=== PATIENT | female | born 2000 | race Caucasian/White ===

== ENCOUNTER 2020-07-29 15:16 | Outpatient (CLI) | payer OTHER, SELFPAY ==
--- NOTE | ~2020-07-29 | US_ITS ---
EXAMINATION: US OB <=14 wk fetus w TV EXAM DATE: 07/29/2020 16:01 INDICATION: For dating and viability. 1st trimester. TECHNIQUE: Pelvic obstetrical transabdominal and transvaginal sonogram was performed by a technologyinka muir. There are multiple grayscale and Doppler images available for interpretation. There are no cheryl ier studies of this gestation for comparison. FINDINGS: Uterus measures 6.6 x 5.7 x 5.1 cm. There is intrauterine gestation sac. pole with heart rate confirmed at 142 beats per minute. The 8 mm crown-rump length corresponds to estimated ge stational age by ultrasound of 6 weeks 5 days, estimated date of confinement 03/19. Yolk sac is iden tified. There is no sonographic evidence of subchorionic hemorrhage. Ovaries not specifically emy ntified. No adnexal mass. IMPRESSION: Early live intrauterine gestation, age by ultrasound 6 weeks 5 days. Reviewed, dictated and finalized at location A. IMPRESSION: Early live intrauterine gestation, age by ultrasound 6 weeks 5 day s.
== END 2020-07-29 15:17 | disposition home or self-care (01) ==
PROVIDERS: Visit Provider Obstetrics & Gynecology
DX: Z36.9 Encounter for antenatal screening, unspecified (principal); Z3A.01 Less than 8 weeks gestation of pregnancy
CPT/HCPCS: 76801; 76817

== ENCOUNTER 2020-08-23 15:58 | Outpatient (CLI) | payer OTHER, SELFPAY ==
[2020-08-23 16:35] LABS: Basophils Percent Auto 0.2 % (0.2-1.2); Eosinophils Absolute Auto 0.1 K/mm3 (0-0.3); Eosinophils Percent Auto 0.7 % (0-4.4); Hematocrit 36.5 % (37.0-47.0); Immature Granulocyte Absolute 0.03 K/mm3 (0.00-0.031); Immature Granulocyte Percent A 0.4 % (0-0.5); Lymphocytes Absolute Auto 1.63 K/mm3 (0.9-3.2); Lymphocytes Percent Auto 20.1 % (18.3-44.2); Mean Corpuscular HGB Conc 35.6 g/dl (32-36); Mean Corpuscular Hemoglobin 30.9 pg (26-34); Mean Corpuscular Volume 86.7 fl (80-100); Mean Platelet Volume 9.6 fl (7.4-10.4); Monocytes Absolute Auto 0.6 K/mm3 (0.1-0.6); Monocytes Percent Auto 7.2 % (2.6-8.5); Neutrophils Absolute Auto 5.8 K/mm3 (1.3-6.7); Neutrophils Percent Auto 71.4 % (45.5-73.1); Platelet Count Result 180 k/mm3 (150-375); Red Blood Count 4.21 M/mm3 (4.2-5.4); Red Cell Distribution Width 12.7 % (11.5-14.5); White Blood Count 8.1 K/mm3 (4.5-10.0)
[2020-08-23 17:15] LABS: Thyroid Stimulating Hormone 0.822 uIU/mL (0.465-4.680)
[2020-08-23 17:25] LABS: Vitamin D 25 Hydroxy 51.3 ng/mL
[2020-08-23 17:25] LABS: HIV 1/2 Ab P24 Ag Result Negative (Negative)
[2020-08-23 17:40] LABS: Hepatitis B Surface Antigen Negative (Negative); Rubella IgG Antibody 78.7 IU/ML
[2020-08-23 17:56] LABS: Hepatitis C Virus Antibody Negative (Negative)
[2020-08-26 07:58] LABS: Rapid Plasma Reagin Non-Reactive (NonReactive)
[2020-08-27 08:45] LABS: Hematocrit 37.1 % (35.0-45.0); Hemoglobin 12.7 g/dL (11.7-15.5); MCH 31.8 pg (27.0-33.0); MCV 92.8 FL (80.0-100.0); RDW 14.9 % (11.0-15.0)
[2020-08-30 13:13] LABS: CF Result NEGATIVE (NEGATIVE)
== END 2020-08-23 15:59 | disposition home or self-care (01) ==
LOC: ANHLAB 15:59
PROVIDERS: Visit Provider Obstetrics & Gynecology
DX: Z34.91 Encounter for supervision of normal pregnancy, unspecified, first trimester (principal); Z3A.10 10 weeks gestation of pregnancy
CPT/HCPCS: 36415; 81220; 82306; 83021; 84443; 85025; 86592; 86703; 86762; 86787; 86803; 86850; 86900; 86901; 87340; G0432

== ENCOUNTER 2020-08-26 17:40 | Outpatient (CLI) | payer OTHER, SELFPAY ==
[2020-08-26 18:07] LABS: Add Urine Microscopic? YES; Appearance Urine Cloudy (Clear); Bacteria Urine Trace /hpf; Bilirubin Urine Negative (Negative); Blood Urine Negative (Negative); Color Urine Yellow (Yellow); Glucose Urine UA Negative (Negative); Ketones Urine Negative (Negative); Leukocyte Esterase Ur 1+ LEU/UL (Negative); Mucus Urine Rare /lpf; Nitrate Urine Negative (Negative); Protein Urine Negative (Negative); Specific Grav Ur 1.006 (1.001-1.035); Squamous Epithelial Cell Urine Many /hpf (Few); Urobilinogen Urine Negative mg/dL (<2.0)
== END 2020-08-26 17:41 | disposition home or self-care (01) ==
PROVIDERS: Visit Provider Obstetrics & Gynecology
DX: Z34.90 Encounter for supervision of normal pregnancy, unspecified, unspecified trimester (principal); Z3A.00 Weeks of gestation of pregnancy not specified
CPT/HCPCS: 81001; 87086; 87088

== ENCOUNTER 2020-10-17 14:29 | Outpatient (CLI) | payer OTHER, SELFPAY ==
--- NOTE | ~2020-10-17 | US_ITS ---
EXAMINATION: US OB /maternal detail DATE: 10/17/2020 15:55 INDICATION: Second trimester anatomic survey TECHNIQUE: Real-time ultrasound of the pelvis was performed. COMPARISON: None. FINDINGS: There is a single living fetus in transverse lie. The placenta is posterior and 3.4 cm from the inter nal cervical os. heart rate is 152 beats per minute (bpm). cardiac activity and mo vement are noted. The amniotic fluid index is subjectively normal. The following anatomy was identified as normal: 4 chamber heart 3 vessel cord cord insertion kidneys urinary bladder stomach spine diaphragm ventricles cisterna magna cerebellum The following biometric data were obtained: Biparietal diameter (BPD): 3.9 cm; head circumference (HC): 15.3 cm; abdominal circumference (AC): 13 .1 cm; femur length (FL): 2.7 cm. These measurements are concordant. Estimated weight is 239 g +/- 35 g, which correlates with the 64th percentile when 03/19/2021 i s used as estimated date of delivery. As single measurements, these parameters are each equal to the following estimated gestational ages w ith ranges of +/- 2 standard deviations: BPD: 18 weeks 0 days +/- 1 weeks 1 days. HC: 18 weeks 2 days +/- 1 weeks 3 days. AC: 18 weeks 5 days +/- 2 weeks 0 days. FL: 18 weeks 1 days +/- 1 weeks 3 days. estimated gestational age based solely on measurements from this exam is 18 weeks 2 days +/- 1 weeks 2 days. IMPRESSION: 1. Single living fetus in transverse lie. 2. Estimated weight is 239 g +/- 35 g, which correlates with the 64th percentile when 1 is used as estimated date of delivery. Reviewed, dictated and finalized at location A. IMPRESSION: 1. Single living fetus in transverse lie. 2. Estimated weight is 239 g +/- 35 g, which correlates with the 64th per centile when 03/19/2021 is used as estimated date of delivery.
== END 2020-10-17 14:30 | disposition home or self-care (01) ==
LOC: ANHIMG 14:30
PROVIDERS: Visit Provider Obstetrics & Gynecology
DX: Z34.92 Encounter for supervision of normal pregnancy, unspecified, second trimester (principal); Z3A.18 18 weeks gestation of pregnancy
CPT/HCPCS: 76805

== ENCOUNTER 2020-11-16 23:50 | Observation (INO) | payer OTHER, SELFPAY ==
[2020-11-17 00:14] VITALS: TEMP 36.7
[2020-11-17] MEDS: ACETAMINOPHEN 500 MG TABLET 1000 MG PO (01:04)
[2020-11-17 01:05] VITALS: BMI 27.6
[2020-11-17 01:20] LABS: Basophils Percent Auto 0.2 % (0.2-1.2); Eosinophils Absolute Auto 0.1 K/mm3 (0-0.3); Eosinophils Percent Auto 0.8 % (0-4.4); Hematocrit 30.6 % (37.0-47.0); Hemoglobin 10.7 g/dL (12.0-15.0); Immature Granulocyte Absolute 0.06 K/mm3 (0.00-0.031); Immature Granulocyte Percent A 0.6 % (0-0.5); Lymphocytes Absolute Auto 1.66 K/mm3 (0.9-3.2); Lymphocytes Percent Auto 15.7 % (18.3-44.2); Mean Corpuscular Hemoglobin 31.9 pg (26-34); Mean Corpuscular Volume 91.3 fl (80-100); Monocytes Absolute Auto 0.8 K/mm3 (0.1-0.6); Monocytes Percent Auto 7.7 % (2.6-8.5); Neutrophils Absolute Auto 7.9 K/mm3 (1.3-6.7); Platelet Count Result 159 k/mm3 (150-375); Red Blood Count 3.35 M/mm3 (4.2-5.4); Red Cell Distribution Width 13.4 % (11.5-14.5); White Blood Count 10.6 K/mm3 (4.5-10.0)
[2020-11-17 01:35] LABS: Alanine Aminotransferase 21 U/L (4-35); Albumin Level 3.3 g/dL (3.5-5.1); Alkaline Phosphatase 58 U/L (38-126); Anion Gap 5 mmol/L (8-16); Aspartate Amino Transferase 23 U/L (14-36); Bilirubin,Total 0.1 mg/dL (0.2-1.3); Blood Urea Nitrogen 4 mg/dL (7-17); Calcium 8.7 mg/dL (8.4-10.2); Carbon Dioxide 24 mmol/L (22-30); Chloride 103 mmol/L (98-107); Estimated CRCL calculation 224 ml/min; Estimated Glomerular Filt Rate > 60; Glucose 95 mg/dL (65-110); Potassium 3.1 mmol/L (3.4-5.0); Sodium 132 mmol/L (137-145)
--- NOTE | 2020-11-20 15:05 | P.PNOB_ITS ---
OB - Triage/Final Diagnosis Visit Information Comments/Additional reasons for admission: I have assessed the risk for this patient, Carlos Eduardo Doylegris, and determined that she would benefit from observation care. Evaluation Laboratory results: Laboratory Tests 11/17/20 11/17/20 01:10 01:10 WBC 10.6 H RBC 3.35 L Hgb 10.7 L Hct 30.6 L MCV 91.3 MCH 31.9 MCHC 35.0 RDW 13.4 Plt Count 159 MPV 9.0 Immature Gran % (Auto) 0.6 H Neut % (Auto) 75.0 H Lymph % (Auto) 15.7 L [place] % (Auto) 7.7 Eos % (Auto) 0.8 Baso % (Auto) 0.2 Lymph # (Auto) 1.66 [place] # (Auto) 0.8 H Eos # (Auto) 0.1 Baso # (Auto) 0.0 Abs Immat Gran (auto) 0.06 H Absolute Neuts (auto) 7.9 H Absolute Nucleated RBC 0.0 Nucleated RBC % 0.0 Sodium 132 L Potassium 3.1 L Chloride 103 Carbon Dioxide 24 Anion Gap 5 L BUN 4 L Creatinine 0.30 L Estim Creat Clear Calc 224 Estimated GFR > 60 Glucose 95 Calcium 8.7 Total Bilirubin 0.1 L AST 23 ALT 21 Alkaline Phosphatase 58 Total Protein 6.0 L Albumin 3.3 L Final Diagnosis (1) Abdominal pain affecting : Code(s): O26.899 - Other specified related conditions, unspecified trimester; R10.9 - Unspecified abdominal pain Status: Acute
== END 2020-11-17 04:05 | disposition home or self-care (01) ==
PROVIDERS: Admitting Provider Obstetrics & Gynecology; Visit Provider Obstetrics & Gynecology
DX: O26.899 Other specified pregnancy related conditions, unspecified trimester (principal); R10.9 Unspecified abdominal pain; Z3A.00 Weeks of gestation of pregnancy not specified
CPT/HCPCS: 36415; 80053; 85025; A9270; G0378; G0379

== ENCOUNTER 2020-12-13 15:29 | Outpatient (CLI) | payer OTHER, SELFPAY ==
[2020-12-13 16:53] LABS: Basophils Percent Auto 0.2 % (0.2-1.2); Eosinophils Absolute Auto 0.1 K/mm3 (0-0.3); Eosinophils Percent Auto 0.6 % (0-4.4); Hemoglobin 11.1 g/dL (12.0-15.0); Immature Granulocyte Absolute 0.06 K/mm3 (0.00-0.031); Immature Granulocyte Percent A 0.6 % (0-0.5); Lymphocytes Absolute Auto 1.55 K/mm3 (0.9-3.2); Lymphocytes Percent Auto 14.4 % (18.3-44.2); Mean Corpuscular HGB Conc 35.8 g/dl (32-36); Mean Corpuscular Hemoglobin 32.6 pg (26-34); Mean Corpuscular Volume 91.2 fl (80-100); Monocytes Absolute Auto 0.8 K/mm3 (0.1-0.6); Monocytes Percent Auto 7.5 % (2.6-8.5); Neutrophils Absolute Auto 8.2 K/mm3 (1.3-6.7); Neutrophils Percent Auto 76.7 % (45.5-73.1); Platelet Count Result 164 k/mm3 (150-375); Red Cell Distribution Width 13.7 % (11.5-14.5); White Blood Count 10.7 K/mm3 (4.5-10.0)
[2020-12-13 17:01] LABS: Glucose 1 Hour PP 50gm Dose 125 mg/dL
[2020-12-13 17:43] LABS: HIV 1/2 Ab P24 Ag Result Negative (Negative)
[2020-12-15 13:13] LABS: Rapid Plasma Reagin Non-Reactive (NonReactive)
== END 2020-12-13 15:30 | disposition home or self-care (01) ==
PROVIDERS: Visit Provider Obstetrics & Gynecology
DX: Z34.90 Encounter for supervision of normal pregnancy, unspecified, unspecified trimester (principal)
CPT/HCPCS: 36415; 82947; 85025; 86592; 86703; G0432

== ENCOUNTER 2021-02-09 00:41 | Observation (INO) | payer OTHER, SELFPAY ==
[2021-02-09 01:00] VITALS: BMI 32.4
[2021-02-09 01:02] VITALS: BP 112/64; PULSE 74
[2021-02-09 01:16] VITALS: BP 112/56; PULSE 71; TEMP 37.2
[2021-02-09 01:30] VITALS: TEMP 37.2
[2021-02-09 01:31] VITALS: BP 88/56; PULSE 78
[2021-02-09 01:44] LABS: Add Urine Microscopic? YES; Appearance Urine Cloudy (Clear); Bacteria Urine Trace /hpf; Bilirubin Urine Negative (Negative); Blood Urine Negative (Negative); Color Urine Yellow (Yellow); Glucose Urine UA Negative (Negative); Ketones Urine Negative (Negative); Leukocyte Esterase Ur Negative LEU/UL (Negative); Mucus Urine Rare /lpf; Nitrate Urine Negative (Negative); Protein Urine Negative (Negative); RBC Urine 0-2 /hpf (0-2); Specific Grav Ur 1.011 (1.001-1.035); Squamous Epithelial Cell Urine Few /hpf (Few); Urobilinogen Urine Negative mg/dL (<2.0); WBC Urine 0-3 /hpf
[2021-02-09 02:01] VITALS: BP 106/60; PULSE 73
--- NOTE | 2021-02-09 04:04 | OBADM ---
This patient, Carlos Eduardo Hayden, admitted to the OB room OB Post 116 for observation. Patient/family oriented to hospital policies and general routines including ID bracelet, bed and alarms, visiting hours, pain management, procedures, bathroom and other care routines, personal items, smoking policy, room service/diet, and visiting hours. Patient/Family are encouraged to report perceived risks to care and to ask questions if they do not understand what they are told or what they should do.
--- NOTE | 2021-03-10 08:45 | PM.OBTRLD ---
OB - Triage/Final Diagnosis Visit Information Comments/Additional reasons for admission: I have assessed the risk for this patient, Carlos Eduardo Long Jackelyn, and determined that she would benefit from observation care. Evaluation Laboratory results: Laboratory Tests 02/09/21 01:23 Urine Color Yellow Urine Appearance Cloudy H Urine pH 7.0 Ur Specific [place] 1.011 Urine Protein Negative Urine Glucose (UA) Negative Urine Ketones Negative Ur Blood (Man) Negative Urine Nitrate Negative Urine Bilirubin Negative Urine Urobilinogen Negative Leukocyte Esterase Rfl Negative Urine RBC 0-2 Urine WBC 0-3 Ur Squamous Epith Cells Few Urine Bacteria Trace Urine Mucus Rare Final Diagnosis (1) Abdominal pain affecting : Code(s): O26.899 - Other specified related conditions, unspecified trimester; R10.9 - Unspecified abdominal pain Status: Acute
== END 2021-02-09 02:38 | disposition home or self-care (01) ==
PROVIDERS: Admitting Provider Obstetrics & Gynecology; Visit Provider Obstetrics & Gynecology
DX: O26.893 Other specified pregnancy related conditions, third trimester (principal); R10.9 Unspecified abdominal pain; Z3A.34 34 weeks gestation of pregnancy
CPT/HCPCS: 81001; G0378; G0379

== ENCOUNTER 2021-02-19 15:57 | Outpatient (CLI) | payer OTHER, SELFPAY ==
--- NOTE | ~2021-02-19 | US_ITS ---
EXAMINATION: US OB follow up DATE: 02/19/2021 16:39 INDICATION: Gestational size less than dates. TECHNIQUE: Real-time transabdominal obstetric ultrasound. FINDINGS: Comparison to multiple prior studies sequentially, with oldest reviewed study dated 020. There is a single living fetus in vertex presentation. The placenta is posterior without placenta pr evia. cardiac activity and movement is noted with a heart rate of 157 beats per minute. T he amniotic fluid volume is normal measuring 15.7 cm. The following biometric data were obtained: BPD: 90mm corresponds to gestational age 36 weeks 3 days. Head circumference: 328mm corresponds to gestational age 37 weeks 1 days. Abdominal circumference: 324mm corresponds to gestational age 36 weeks 2 days. Femur length: 67mm corresponds to gestational age 34 weeks 3 days. Estimated weight: 2802 ggrams +/- 420grams.] IMPRESSION: 1. Single living intrauterine fetus in vertex presentation with an estimated gestational age of 36 w eeks 0 days by inititial ultrasound. Appropriate interval growth. 2. Normal placenta. Reviewed, dictated and finalized at location B. [employer] IMPRESSION: 1. Single living intrauterine fetus in vertex presentation with an estimated g estational age of 36 weeks 0 days by inititial ultrasound. Appropriate interva l growth. 2. Normal placenta.
== END 2021-02-19 15:58 | disposition home or self-care (01) ==
LOC: ANHIMG 16:04
PROVIDERS: PCP Obstetrics & Gynecology; Visit Provider Obstetrics & Gynecology
DX: O26.843 Uterine size-date discrepancy, third trimester (principal); Z3A.36 36 weeks gestation of pregnancy
CPT/HCPCS: 76816

== ENCOUNTER 2021-02-25 00:46 | Observation (INO) | payer OTHER, SELFPAY ==
--- NOTE | 2021-02-25 02:37 | OBADM ---
This patient, Carlos Eduardo Hayden, admitted to the OB room Labor/Delivery/Recovery 103 for observation. Patient/family oriented to hospital policies and general routines including ID bracelet, bed and alarms, visiting hours, pain management, procedures, bathroom and other care routines, personal items, smoking policy, room service/diet, and visiting hours. Patient/Family are encouraged to report perceived risks to care and to ask questions if they do not understand what they are told or what they should do.
[2021-02-25 02:43] VITALS: BMI 32.2
--- NOTE | 2021-03-31 11:41 | PM.OBTRLD ---
OB - Triage/Final Diagnosis Visit Information Comments/Additional reasons for admission: I have assessed the risk for this patient, Carlos Eduardo Hayden, and determined that she would benefit from observation care. Final Diagnosis (1) Threatened labor: Code(s): O47.9 - False labor, unspecified Status: Acute
== END 2021-02-25 02:55 | disposition home or self-care (01) ==
PROVIDERS: Admitting Provider Obstetrics & Gynecology; Visit Provider Obstetrics & Gynecology
DX: O47.03 False labor before 37 completed weeks of gestation, third trimester (principal); Z3A.36 36 weeks gestation of pregnancy
CPT/HCPCS: G0378; G0379

== ENCOUNTER 2021-03-12 04:30 | Inpatient (IN) | payer OTHER, SELFPAY ==
[2021-03-11 07:20] VITALS: RESP 14; TEMP 36.9
[2021-03-12] VITALS (93 sets, daily range): BP systolic 76–135; BP diastolic 30–90; PULSE 60–130; RESP 16; TEMP 36.1–37.3; O2SAT 97–100
[2021-03-12 05:49] LABS: Basophils Percent Auto 0.1 % (0.2-1.2); Eosinophils Percent Auto 0.3 % (0-4.4); Hematocrit 36.1 % (37.0-47.0); Hemoglobin 12.6 g/dL (12.0-15.0); Immature Granulocyte Absolute 0.05 K/mm3 (0.00-0.031); Immature Granulocyte Percent A 0.6 % (0-0.5); Lymphocytes Absolute Auto 1.42 K/mm3 (0.9-3.2); Lymphocytes Percent Auto 16.3 % (18.3-44.2); Mean Corpuscular HGB Conc 34.9 g/dl (32-36); Mean Corpuscular Hemoglobin 32.8 pg (26-34); Mean Platelet Volume 9.3 fl (7.4-10.4); Monocytes Absolute Auto 0.6 K/mm3 (0.1-0.6); Monocytes Percent Auto 6.4 % (2.6-8.5); Neutrophils Absolute Auto 6.6 K/mm3 (1.3-6.7); Neutrophils Percent Auto 76.3 % (45.5-73.1); Platelet Count Result 146 k/mm3 (150-375); Red Blood Count 3.84 M/mm3 (4.2-5.4); Red Cell Distribution Width 13.2 % (11.5-14.5); White Blood Count 8.7 K/mm3 (4.5-10.0)
--- NOTE | 2021-03-12 06:31 | LDADM ---
This patient, Carlos Eduardo Hayden, was admitted to Labor/Delivery/Recovery 104 on 03/12/21 at 04:30. Plans for labor, pain management and were discussed with patient. Patient/family oriented to hospital policies and general routines including ID bracelet, bed and alarms, visiting hours, pain management, procedures, bathroom and other care routines, personal items, smoking policy, room service/diet and guest tray routines, infant security routines, and visiting hours. Patient/Family are encouraged to report perceived risks to care and to ask questions if they do not understand what they are told or what they should do. See OBIX for further documentation.
[2021-03-12 06:33] LABS: HIV 1/2 Ab P24 Ag Result Negative (Negative)
[2021-03-12] MEDS: OXYTOCIN 30 UNITS/NS 500 ML 30 UNITS/500 ML BAG 6 UNITS IV CONT (06:43)
[2021-03-12] MEDS: LACTATED RINGERS 1,000 ML 125 ML IV CONT ×2 (06:44→14:08)
--- NOTE | 2021-03-12 07:45 | WPDOBADMIT ---
Obstetrics - Admit Note Admission Note: record reviewed. No pertinent additions to the history and/or any subsequent changes in the physical findings that are not consistent with the expected course of the were found. Additions to the history and/or subsequent changes in the physical findings follow. G1 at 39 weeks for induction of labor. Cervix 2-330/-2. AROM with clear fluid. GBS negative. Continue pitocin.
[2021-03-12 12:58] LABS: Rapid Plasma Reagin Non-Reactive (NonReactive)
[2021-03-12] MEDS: ONDANSETRON INJ 4 MG/2 ML VIAL IV PUSH (15:08)
--- NOTE | 2021-03-12 20:26 | PM.OBPRVD ---
OB - Delivery Note Procedure Delivery date: 03/12/21 Procedure: events: Labor Induction Intrapartal events: None Induction method: AROM and per pitocin protocol Delivery monitor: external FHT and external uterine Route of delivery: Laceration Description: Perineal - 2nd Degree and Labial (left) Delivery repair: vicryl (2-0 (perineal), 3-0 (labial)) Specimen: No Quantitative Blood Loss (ml): 237 Anesthesia type: Epidural Disposition: floor Baby Date of : 03/12/21 Time of : 20:06 Weeks of gestation at delivery: 39 Infant gender: Male Weight (pounds): 7 Weight (ounces): 9 presentation: vertex position: Right Occiput Anterior Placenta delivery description: Spontaneous cord vessel description: 3 Vessels, Nuchal Cord, Tight and Clamped/Cut score one minute: 8 score five minutes: 9
[2021-03-12] MEDS: OXYTOCIN 30 UNITS/NS 500 ML 30 UNITS/500 ML BAG 125 UNITS IV CONT (20:32)
[2021-03-13] MEDS: ACETAMINOPHEN 325 MG TABLET 650 MG PO (02:19)
[2021-03-13] MEDS: LANOLIN (LANSINOH) 7.5 GM CREAM 1 APPLIC TOPICAL (02:20)
[2021-03-13 04:00] VITALS: BP 117/64; PULSE 83; RESP 18; TEMP 36.8
[2021-03-13 04:24] LABS: Hematocrit 34.8 % (37.0-47.0); Hemoglobin 12.3 g/dL (12.0-15.0)
--- NOTE | 2021-03-13 06:18 | WPDANLDPN2 ---
Anes-Prog Note L&D Date/Time: 03/13/21 06:18 Comfortable throughout: labor and delivery Neuraxial method: epidural Epidural/Spinal procedure site: tender Neuro status: Neuro function grossly intact. Cardiovascular status: normal Respiratory status: normal Airway patency: baseline Mental status: baseline Post-Op hydration status: normal Vital Signs: Last Vital Signs Temp 98.2 F 03/13/21 04:00 Pulse 83 03/13/21 04:00 Resp 18 03/13/21 04:00 BP 117/64 03/13/21 04:00 Pulse Ox 100 03/12/21 15:01 Pain score (VAS): 2 I/O: Intake & Output 03/12/21 03/12/21 03/13/21 15:59 23:59 07:59 Intake Total 1000 1500 Output Total 88 Balance 1000 1412 Post-procedural complaints: none Patient feedback: Patient satisfied with anesthetic care.
[2021-03-13] MEDS: DOCUSATE SODIUM 100 MG CAPSULE PO (07:05)
[2021-03-13] MEDS: HYDROcodone/acetaminophen (*CRX) 5-325 MG TABLET 1 TAB PO ×3 (07:06→15:28)
[2021-03-13] MEDS: MULTIVIT/MIN/PREN/FOL AC/IRON TABLET 1 TAB PO (07:06)
[2021-03-13 07:20] VITALS: BP 116/77; PULSE 85; RESP 14; TEMP 37.2; O2SAT 97
--- NOTE | 2021-03-13 09:00 | P.PNOB_ITS ---
OB - PN: Subj Subjective Date/time seen: 03/13/21 09:00 Patient comments: no complaints, pain well controlled and other (Lochia similar to menses) Buckley baby status: doing well OB - PN: Obj Data Labs CBC & Chem 7: 03/13/21 03:38 Labs: Laboratory Results - last 24 hr 03/12/21 03/13/21 05:32 03:38 Hgb 12.3 Hct 34.8 L RPR Non-reactive OB - PN A/P Plan day: 1 (s/p vaginal delivery, doing well) Plan: routine care Time Spent With Patient Time: Total time spent is greater than 50% in coordination of care (as documented) at patient's floor/unit and/or counseling patient: Exam Const: General: no acute distress GI: Inspection: other (Fundus firm and nontender at umbilicus) GI Palp: Yes Soft to palpation and No Tenderness to palpation present (GI) Extrem: General: no edema
--- NOTE | 2021-03-13 09:00 | PC.NURSE ---
Consult with pt., mother reports is eagerly feeding with slight tenderness. This is mother?s 1st child to breastfeed. Reviewed feeding cues, frequencies, duration of feedings, feeding elimination flow sheet, and signs of adequate intake. Demonstrated stimulation techniques to wake for feeding. Reviewed signs of a correct latch, effective nursing and suck swallow ratio. Nipple care reviewed of lanolin after feedings and warm compresses as needed. Requested mother to call out for RN/LC assistance next feeding to assess latch due reported nipple tenderness. Instructed feeding should be initiated three hours from start of last feeding or if feeding cues are noted before. Mother voiced understanding of information shared.
--- NOTE | 2021-03-13 10:25 | PC.NURSE ---
Mother called out for assist with feeding. is able to freely thrust tongue past gum ridge and flange both lips. Skin is intact on both nipples, no redness and bruising noted. Reviewed feeding cues, frequencies, duration of feedings, feeding elimination flow sheet, and signs of adequate intake. Demonstrated stimulation techniques to wake for feeding. Assisted with to breast. Reviewed positioning/alignment in cross cradle, holding breast in ?U? hold and guided asymmetrical latch on. Reviewed rational for each. Infant able to latch correctly within a few attempts. nursed eagerly with steady draws and occasional swallowing noted, some pausing noted. Reviewed signs of a correct latch, effective nursing and suck swallow ratio. Suggested mother stimulate while feeding to increase stimulation for milk supply, for increased intake and to assist with maintaining deep latch. Infant would pull back and slip to shallow latch causing tenderness. Demonstrated how to adjust latch more deeply while feeding as needed. Mother reports she can feel the difference in latch with less tenderness. Nipple care reviewed of lanolin after feedings, warm compresses as needed. Advised to give infant slight resistance and not allow to pull back while feeding. Instructed mother to call out for RN assistance if she is unable to latch for feeding or she has discomfort with nursing. Instructed feeding should be initiated three hours from start of last feeding or if feeding cues are noted before. Mother voiced understanding of information shared.
[2021-03-13 13:15] VITALS: BP 120/55; PULSE 71; RESP 18; TEMP 36.4; O2SAT 98
--- NOTE | 2021-03-13 13:35 | PC.NURSE ---
Mother called out for assist with feeding. Assisted with to breast. Reviewed positioning/alignment in cross cradle, holding breast in ?U? hold and guided asymmetrical latch on. Reviewed rational for each. Mother was able to latch correctly within a few attempts. nursed eagerly with steady draws and occasional swallowing noted, some pausing noted. Reviewed signs of a correct latch, effective nursing and suck swallow ratio. Suggested mother stimulate while feeding to increase stimulation for milk supply, for increased intake and to assist with maintaining deep latch. . Infant would slip to shallow latch causing tenderness. Mother independently adjusted latch more deeply. Mother reports she can feel the difference in latch with less tenderness after adjustment. Nipple care reviewed of lanolin after feedings, warm compresses as needed. Instructed mother to call out for RN assistance if she is unable to latch infant for feeding or she has discomfort with nursing. Instructed feeding should be initiated three hours from start of last feeding or if feeding cues are noted before. Mother voiced understanding of information shared.
--- NOTE | 2021-03-13 15:53 | P.DS_ITS ---
DS: Admitting Diagnosis Discharge Date 03/13/2021 Admitting Diagnosis induction of labor DS: Discharge Diagnosis Discharge Diagnosis (1) Vaginal delivery: Code(s): O80 - Encounter for full-term uncomplicated delivery Status: Acute OB - DS: Summary OB Procedures : None OB Procedures Intrapartum: Spontaneous Vag Delivery OB Procedures: : None and RHo (D) lg Peripartum Data Delivery Method: Natural Vaginal Laceration Description: Perineal - 2nd Degree and Labial complications: none Status at Discharge Functional status at discharge: independent ambulation Overall status at discharge: patient is progressing back to baseline Time Spent with Patient Time attestation: Total time spent providing and/or coordinating discharge services: Time spent: Less than 30 minutes DS: Data Data Completed and Pending Labs on day of discharge: Labs from last 24 hours 03/13/21 03:38 Hgb 12.3 Hct 34.8 L Discharge Plan Discharge Attending physician on discharge: norm Discharging Clinician: Annmarie Don Patient Disposition: Home, Self-Care Activity: may shower and pelvic rest Diet: as tolerated Patient Instructions: Antibiotic Form Stand Alone Forms: General Discharge Information Follow-up/Referrals: Annmarie Don MD [Physician] - 4 Weeks Discharge Medications: New hydrocodone-acetaminophen 5-325 mg Tablet 1 tablet PO Q4H PRN (Reason: Moderate Pain (4-6)) Qty: 20 RF: 0 ibuprofen 600 mg Tablet 600 mg PO Q6H PRN (Reason: Cramping) Qty: 60 RF: 0 Continued DHA 200 mg capsule 200 mg PO DAILY RF: 0 acetaminophen [Tylenol] 325 mg Capsule 650 mg PO ONCE RF: 0 ferrous sulfate 325 mg (65 mg iron) Capsule, Extended Release 325 mg PO DAILY RF: 0 Date of admission: 03/12/21 04:30 Primary Care Provider: PHYSICIAN,[employer] Admitting Provider: Annmarie Don Attending physician on admission: Annmarie Don Condition: Stable
== END 2021-03-13 18:30 | disposition home or self-care (01) | DRG 807 ==
LOC: ANHLDR 04:37 → ANHOB2 23:45
PROVIDERS: Admitting Provider Obstetrics & Gynecology; Visit Provider Obstetrics & Gynecology
DX: O70.1 Second degree perineal laceration during delivery (principal); Z37.0 Single live birth; O69.1XX0 Labor and delivery complicated by cord around neck, with compression, not applicable or unspecified; Z3A.39 39 weeks gestation of pregnancy
CPT/HCPCS: 36415; 85014; 85018; 85025; 86592; 86703; 86850; 86900; 86901; A9270; G0432; J2405; J2590; J2795; J7120

== ENCOUNTER → 2023-02-05 10:00 | Outpatient (CLI) | payer OTHER, SELFPAY ==
--- NOTE | ~2023-02-05 | US_ITS ---
EXAMINATION: US OB /maternal detail DATE: 02/05/2023 10:30 INDICATION: anatomic survey. TECHNIQUE: Real-time ultrasound of the pelvis was performed. COMPARISON: None. FINDINGS: There is a single living fetus in transverse lie. The placenta is posterior and covers the internal cervical os. heart rate is 145 beats per minute (bpm). The amniotic fluid volume is subjectivel y normal. The following biometric data were obtained: Biparietal diameter (BPD): 4.4 cm; head circumference (HC): 16.6 cm; abdominal circumference (AC): 13 .9 cm; femur length (FL): 2.8 cm. These measurements are concordant. Estimated weight is 271 g +/- 41 g, which correlates with the 74th percentile when 07/05/23 is u sed as estimated date of delivery. As single measurements, these parameters are each equal to the following estimated gestational ages: BPD: 19 weeks 3 days. HC: 19 weeks 2 days. AC: 19 weeks 2 days. FL: 18 weeks 4 days. estimated gestational age based solely on measurements from this exam is 19 weeks 1 days +/- 1 weeks 2 days. The cerebral ventricles, cerebellum, cisterna magna, nuchal fold, lip, and visualized portions of the spine are normal. The heart is normal. The diaphragm, stomach, kidneys, and bladder are normal. Ther e are two umbilical arteries to yield a 3-vessel cord. The cord insertion is normal. IMPRESSION: 1. Single living fetus in transverse lie. 2. Estimated weight is 271 g +/- 41 g, which correlates with the 74th percentile when 07/05/23 is used as estimated date of delivery. 3. Normal anatomic survey. 4. Placenta previa. Ultrasound is recommended in the third trimester to confirm resolution. Reviewed, dictated and finalized at location A. R MIXER IMPRESSION: 1. Single living fetus in transverse lie. 2. Estimated weight is 271 g +/- 41 g, which correlates with the 74th pe rcentile when 07/05/23 is used as estimated date of delivery. 3. Normal anatomic survey. 4. Placenta previa. Ultrasound is recommended in the third trimester to confirm resolution.
== END ==
PROVIDERS: PCP Obstetrics & Gynecology Gynecologic Oncology; Visit Provider Obstetrics & Gynecology Gynecologic Oncology
DX: Z34.90 Encounter for supervision of normal pregnancy, unspecified, unspecified trimester (principal)
CPT/HCPCS: 76805